=== PATIENT | male | born 1970 | race African-American/Black ===

== ENCOUNTER 2017-10-03 18:40 | Emergency (ER) | payer MEDICAID, OTHER ==
[~2017-10-03] VITALS: Ht 175.3 cm; Wt 114.0 kg
[2017-10-04] MEDS ORDERED: TRAMADOL 50MG TABLET PO ONE (00:45)
[2017-10-04] MEDS ORDERED: DIPHENHYDRAMINE 25MG CAPSULE PO ONE (00:45)
[2017-10-04 01:08] VITALS: BP 155/101
== END 2017-10-04 01:15 | disposition home or self-care (01) ==
LOC: ER 19:32
DX: M54.5 Low back pain (principal); R20.0 Anesthesia of skin; M79.672 Pain in left foot; W01.0XXA Fall on same level from slipping, tripping and stumbling without subsequent striking against object, initial encounter; Y93.89 Activity, other specified; Y99.8 Other external cause status; Y92.89 Other specified places as the place of occurrence of the external cause; Z90.49 Acquired absence of other specified parts of digestive tract; Z98.890 Other specified postprocedural states
CPT/HCPCS: 99283; Q0163